=== PATIENT | female | born 1965 | race Caucasian/White ===

== ENCOUNTER 2017-04-11 05:46 | Emergency (ER) | payer OTHER ==
[2017-04-11 08:34] LABS: APPEARANCE,URINE SLIGHTLY-CLOUDY; BILIRUBIN,URINE NEGATIVE (NEGATIVE); GLUCOSE, URINE 50 mg/dL (NEGATIVE); KETONES,URINE NEGATIVE (NEGATIVE); LEUKOCYTE ESTERASE,URINE NEGATIVE (NEGATIVE); NITRITE,URINE NEGATIVE (NEGATIVE); PROTEIN,URINE NEGATIVE (NEGATIVE); URINE SPECIFIC GRAVITY 1.014; UROBILINOGEN,URINE NEGATIVE mg/dL (<2.0)
[2017-04-11 08:51] LABS: ABSOLUTE BASOPHILS # (AUTO) 0.1 10^3/uL (0.0-0.2); ABSOLUTE EOSINOPHILS # (AUTO) 0.3 10^3/uL (0.0-0.6); ABSOLUTE LYMPHOCYTES (AUTO) 2.4 10^3/uL (0.5-4.7); ABSOLUTE MONOCYTES (AUTO) 0.4 10^3/uL (0.1-1.4); ABSOLUTE NEUT (AUTO) 5.8 10^3/uL (1.7-8.2); BASOPHILS % (AUTO) 0.9 % (0-2); EOSINOPHILS % (AUTO) 3.1 % (0-6); HEMATOCRIT 40.3 % (36.0-47.0); HGB HCT DIFFERENCE -1.3; LYMPHOCYTES % (AUTO) 26.6 % (13-45); MEAN CORPUSCULAR HEMOGLOBIN 25.1 pg (27.0-33.4); MEAN CORPUSCULAR HGB CONC 32.4 g/dL (32.0-36.0); MEAN CORPUSCULAR VOLUME 77 fl (80-97); MONOCYTES % (AUTO) 4.1 % (3-13); RED CELL DISTRIBUTION WIDTH 16.3 % (11.5-14.0); SEGMENTED NEUTROPHILS % (AUTO) 65.3 % (42-78); WHITE BLOOD COUNT 8.9 10^3/uL (4.0-10.5)
[2017-04-11 09:07] LABS: ALANINE AMINOTRANSFERASE 41 U/L (9-52); ALBUMIN 4.2 g/dL (3.5-5.0); ALKALINE PHOSPHATASE 106 U/L (38-126); ANION GAP 9 (5-19); ASPARTATE AMINO TRANSFERASE 62 U/L (14-36); BILIRUBIN,DIRECT 0.6 mg/dL (0.0-0.4); BLOOD UREA NITROGEN 10 mg/dL (7-20); CALCIUM 9.4 mg/dL (8.4-10.2); CARBON DIOXIDE 32 mmol/L (22-30); CHLORIDE 98 mmol/L (98-107); GLUCOSE 224 mg/dL (75-110); POTASSIUM 4.5 mmol/L (3.6-5.0); TOTAL PROTEIN 8.2 g/dL (6.3-8.2)
--- NOTE | 2017-04-11 10:28 | RADIOLOGY REPORT (SQ) ---
EXAM DESCRIPTION: CT ABD/PELVIS WITH IV ONLY COMPLETED DATE/TIME: 04/11/2017 10:00 am REASON FOR STUDY: LUQ pain COMPARISON: None. TECHNIQUE: CT scan of the abdomen and pelvis performed using helical scanning technique with dynamic intravenous contrast injection. No oral contrast. Images reviewed with lung, soft tissue, and bone windows. Reconstructed coronal and sagittal MPR images reviewed. Delayed images for evaluation of the urinary system also acquired. All images stored on PACS. All CT scanners at this facility use dose modulation, iterative reconstruction, and/or weight based d osing when appropriate to reduce radiation dose to as low as reasonably achievable (ALARA). [facility]: Dose Right [facility]: CareDose [facility]: Dose Right [facility]: Teradose 4D [facility]: [employer] CONTRAST TYPE AND DOSE: 100mL Isovue 370- low osmolar. RENAL FUNCTION: Creatinine 0.7 BUN 10 RADIATION DOSE: 42.28mGy. LIMITATIONS: None. FINDINGS: LOWER CHEST: Cardiomegaly. Low lung volumes. LIVER: Hepatomegaly. Decreased density. No masses. SPLEEN: Splenomegaly. The spleen measures 15.4 cm. PANCREAS: No masses. No significant calcifications. No adjacent inflammation or peripancreatic fluid collections. Pancreatic duct not dilated. GALLBLADDER: Surgically absent. ADRENAL GLANDS: No significant masses or asymmetry. RIGHT KIDNEY AND URETER: No solid masses. No significant calcifications. No hydronephrosis or hyd roureter. LEFT KIDNEY AND URETER: No solid masses. No significant calcifications. No hydronephrosis or hydr oureter. AORTA AND VESSELS: No aneurysm. No dissection. Renal arteries, SMA, celiac without stenosis. RETROPERITONEUM: No retroperitoneal adenopathy, hemorrhage or masses. BOWEL AND PERITONEAL CAVITY: No masses or inflammatory changes. No free fluid or peritoneal masses. Sigmoid diverticula with no acute inflammatory changes. APPENDIX: Normal. PELVIS: The urinary bladder is normal. The uterus is normal for age. There is no adnexal mass or fl uid collection. There is no free fluid. ABDOMINAL WALL: No masses. No hernias. BONES: Bridging osteophytes are present thoracic and upper lumbar spine. There is grade 1 anterolist hesis of L4 on L5. The L4-5 and L5-S1 disc spaces are narrowed. OTHER: No other significant finding. IMPRESSION: 1. Hepatosplenomegaly with fatty infiltration of the liver. 2. Diverticulosis coli. 3. Thoracolumbar spondylosis with lumbar degenerative disc changes and grade 1 anterolisthesis of L4 on L5. TECHNICAL DOCUMENTATION: JOB ID: [id number] Quality ID # [id number]: Final reports with documentation of one or more dose reduction techniques (e.g., Au tomated exposure control, adjustment of the mA and/or kV according to patient size, use of iterative reconstruction technique) 2010 [employer]- All Rights Reserved
--- NOTE | 2017-04-11 11:03 | ER Document Report ---
ED General - General Chief Complaint: Abdominal Pain Stated Complaint: ABDOMINAL PAIN Time Seen by Provider: 04/11/17 06:14 Mode of Arrival: Wheelchair Information source: Patient Notes: 51-year-old female presents with complaints of intermittent abdominal pain. Patient notes a tender nodule in the left upper abdomen. Denies any fevers or chills. Patient does note bright red blood clots per rectum TRAVEL OUTSIDE OF THE [place] IN LAST 30 DAYS: No - HPI Onset: Just prior to arrival Onset/Duration: Sudden Quality of pain: Cramping Severity: Mild Pain Level: 1 Associated symptoms: None Exacerbated by: Denies Relieved by: Denies Similar symptoms previously: No Recently seen / treated by doctor: No - Related Data Allergies/Adverse Reactions: zithromax Allergy (Severe, Uncoded 02/08/14 22:43) Past Medical History - Social History Smoking Status: Never Smoker Cigarette use (# per day): No Chew tobacco use (# tins/day): No Smoking Education Provided: No Family History: Reviewed & Not Pertinent Patient has suicidal ideation: No Patient has homicidal ideation: No - Past Medical History Cardiac Medical History: Reports: Hx Hypertension Denies: Hx Coronary Artery Disease, Hx Heart Attack Pulmonary Medical History: Reports: Hx Asthma Denies: Hx Bronchitis, Hx COPD, Hx Pneumonia Neurological Medical History: Denies: Hx Cerebrovascular Accident, Hx Seizures Renal/ Medical History: Denies: Hx Peritoneal Dialysis Musculoskeltal Medical History: Reports Hx Arthritis Past Surgical History: Reports: Hx Section - x2, Hx Cholecystectomy, Hx Tonsillectomy, Hx Tubal Ligation. Denies: Hx Pacemaker - Immunizations Hx Diphtheria, Pertussis, Tetanus Vaccination: No Review of Systems - Review of Systems Notes: PHYSICAL EXAMINATION: GENERAL: Well-appearing, well-nourished and in no acute distress. HEAD: Atraumatic, normocephalic. EYES: Pupils equal round and reactive to light, extraocular movements intact, conjunctiva are normal. ENT: Nares patent, oropharynx clear without exudates. Moist mucous membranes. NECK: Normal range of motion, supple without lymphadenopathy LUNGS: Breath sounds clear to auscultation bilaterally and equal. No wheezes rales or rhonchi. HEART: Regular rate and rhythm without murmurs ABDOMEN: Soft, tender nodule left upper abdomen Female : deferred Musculoskeletal: Normal range of motion, no pitting or edema. No cyanosis. NEUROLOGICAL: Cranial nerves grossly intact. Normal speech, normal gait. Normal sensory, motor exams PSYCH: Normal mood, normal affect. SKIN: Warm, Dry, normal turgor, no rashes or lesions noted. Physical Exam - Vital signs Vitals: Temp Pulse Resp BP Pulse Ox 97.8 F 88 20 156/82 H 97 04/11/17 05:47 04/11/17 05:47 04/11/17 05:47 04/11/17 05:47 04/11/17 05:47 Course - Re-evaluation Re-evalutation: 04/11/17 11:03 CT was consistent with diverticulosis, patient does have a history of gastric reflux as well. I believe these may be the causes of blood per rectum however would not be the cause of the tender nodule on her abdomen, ultrasound is pending 04/11/17 13:11 Ultrasound is consistent with a 2 x 2.5 x 2 cm palpable abnormality, consideration for lipoma versus hematoma versus abscess. Patient does not wish to have this area explored at this time. Will have follow-up with primary care physician. She will be treated for her gastric reflux and diverticulosis After performing a Medical Screening Examination, I estimate there is LOW risk for ACUTE APPENDICITIS, BOWEL OBSTRUCTION, ACUTE CHOLECYSTITIS, PERFORATED DIVERTICULITIS, INCARCERATED HERNIA, PANCREATITIS, PELVIC INFLAMMATORY DISEASE, PERFORATED ULCER, ECTOPIC , or TUBO-OVARIAN ABSCESS, thus I consider the discharge disposition reasonable. Also, there is no evidence or peritonitis , sepsis, or toxicity. I have reevaluated this patient multiple times and no significant life threatening changes are noted. The patient and I have discussed the diagnosis and risks, and we agree with discharging home with close follow-up with the understanding that symptoms and presentations can change. We also discussed returning to the Emergency Department immediately if new or worsening symptoms occur. We have discussed the symptoms which are most concerning (e.g., bloody stool, fever, changing or worsening pain, vomiting) that necessitate immediate return. - Vital Signs Vital signs: Temp Pulse Resp BP Pulse Ox 97.8 F 88 20 156/82 H 97 04/11/17 05:47 04/11/17 05:47 04/11/17 05:47 04/11/17 05:47 04/11/17 05:47 - Laboratory Result Diagrams: 04/11/17 08:35 04/11/17 08:35 Laboratory results interpreted by me: 04/11/17 04/11/17 04/11/17 08:10 08:35 08:35 MCV 77 L MCH 25.1 L RDW 16.3 H Carbon Dioxide 32 H Glucose 224 H Direct Bilirubin 0.6 H AST 62 H Urine Glucose (UA) 50 H Urine Blood SMALL H - Diagnostic Test Radiology reviewed: Image reviewed, Reports reviewed - Diverticulosis Discharge - Discharge Clinical Impression: Hypertension Qualifiers: Hypertension type: essential hypertension Qualified Code(s): I10 - Essential ( primary) hypertension Diverticulosis Qualifiers: Diverticulosis site: diverticulosis of large intestine Diverticulosis bleeding : diverticulosis without bleeding Qualified Code(s): K57.30 - Diverticulosis of large intestine without perforation or abscess without bleeding Abdominal pain Qualifiers: Abdominal location: generalized Qualified Code(s): R10.84 - Generalized abdominal pain Lipoma Qualifiers: Lipoma location: trunk Qualified Code(s): D17.1 - Benign lipomatous neoplasm of skin and subcutaneous tissue of trunk Condition: Stable Disposition: HOME, SELF-CARE Instructions: Abdominal Pain ([facility]) Prescriptions: Famotidine [Pepcid 20 mg Tablet] 20 mg PO DAILY #30 tablet Omeprazole 20 mg PO DAILY #30 tablet.dr Referrals: GEE JIMENEZ CNM [Primary Care Provider] - Follow up as needed LINA LAO MD [ACTIVE STAFF] - Follow up tomorrow
--- NOTE | 2017-04-11 12:52 | RADIOLOGY REPORT (SQ) ---
EXAM DESCRIPTION: U/S ABDOMEN LIMITED W/O DOP COMPLETED DATE/TIME: 04/11/2017 12:25 pm REASON FOR STUDY: left upper abd mass? COMPARISON: None. TECHNIQUE: Dynamic and static grayscale images acquired of the localized site of clinical concern an d recorded on PACS. Additional selected color Doppler and spectral images recorded. SITE OF CONCERN: Left upper abdomen LIMITATIONS: None. FINDINGS: SKIN AND SUBCUTANEOUS TISSUES: An ill-defined area of increased echogenicity is identified at the level of the palpable abnormality measuring 2.4 x 2.6 x 1.7 cm in diameters. Differential po ssibilities would include a lipoma or hematoma. This could also be related to an infectious process. No associated fluid collections are identified. Other etiologies cannot be completely excluded. C linical correlation is recommended. DEEP SOFT TISSUES/MUSCLES: No masses. No fluid collections. No edema. VASCULAR: No increased or decreased vascularity. No occlusions. OTHER: No other significant finding. IMPRESSION: Ill-defined area of increased echogenicity is identified at the level of the palpable ab normality is noted above with differential possibilities as noted above. Clinical correlation is rec ommended TECHNICAL DOCUMENTATION: JOB ID: [id number] [employer]- All Rights Reserved
[2017-04-11 13:29] VITALS: BP 149/77
== END 2017-04-11 13:29 | disposition home or self-care (01) ==
LOC: ER 05:46
DX: D17.1 Benign lipomatous neoplasm of skin and subcutaneous tissue of trunk (principal); K21.9 Gastro-esophageal reflux disease without esophagitis; K57.30 Diverticulosis of large intestine without perforation or abscess without bleeding; K62.5 Hemorrhage of anus and rectum; R10.84 Generalized abdominal pain; I10 Essential (primary) hypertension; Z87.19 Personal history of other diseases of the digestive system; Z88.1 Allergy status to other antibiotic agents
CPT/HCPCS: 36415; 74177; 76705; 80053; 81001; 81025; 83690; 85025; 99284

== ENCOUNTER 2017-06-27 14:59 | Day surgery (SDC) | payer OTHER ==
[2017-06-27] MEDS ORDERED: FENTANYL CITRATE INJ/PF 100 MCG/2 ML AMPUL ONE (15:23)
[2017-06-27] MEDS ORDERED: NALOXONE HCL INJ/PF 0.4 MG/1 ML SDV ONE (15:23)
[2017-06-27] MEDS ORDERED: GLUCAGON,HUMAN RECOMB 1 MG INJ ONE (15:24)
[2017-06-27] MEDS ORDERED: EPINEPHRINE INJ 1 MG/10 ML DISP.SYRIN ONE (15:24)
[2017-06-27] MEDS ORDERED: FLUMAZENIL INJ 0.5 MG/5 ML VIAL IV ONE (15:24)
[2017-06-27] MEDS: MIDAZOLAM 2 MG/2 ML INJ ONE ×2 (17:40→17:45)
--- NOTE | 2017-06-27 18:10 | Operative Report ---
Operative Report DATE OF SURGERY: 06/27/17 Operative Report: Pre-op diagnosis: Colon cancer screening and history of diverticulitis Post-op diagnosis: Pancolonic diverticulosis. Internal hemorrhoids Surgery: Colonoscopy Medications: Versed 4mg, Fentanyl 100mcg IV push Tissue removed: Procedure: After informed consent obtained from patient, conscious sedation was achieved. A digital rectal examination was performed and this was unremarkable. The colonoscope was inserted into the rectum and advanced to the cecum. The appendiceal orifice and the terminal ileum were both identified. The mucosa was examined into details as the colonoscope was slowly pulled out of the patient. The endoscope was retroflexed in the rectum. Patient tolerated the procedure well. Findings Cecum: Normal Ascending colon: A few diverticuli Transverse colon: Normal Descending colon: A few diverticuli Sigmoid colon: Multiple diverticuli Rectum: Normal except for internal hemorrhoids Plan: Fiber supplements every day. Follow-up colonoscopy in 10 years OPERATION: .
--- NOTE | 2017-06-27 18:13 | PDOC DISCHARGE SUMMARY ---
Discharge Summary (SDC) - Discharge Final Diagnosis: Pancolonic diverticulosis Date of Surgery: 06/27/17 Condition: Stable Treatment or Instructions: Fiber supplements twice a day Discharge Diet: As Tolerated Discharge Activity: Activity As Tolerated Report the Following to Your Physician Immediately: Shortness of Breath, Nausea , Vomiting, Swelling, Warmth, Increased Soreness
[2017-06-27] MEDS ORDERED: LIDOCAINE 0.5% INJ-PF (5 MG/ML) 50 ML SDV ONE (18:51)
[2017-06-27 18:52] VITALS: BP 136/66
== END 2017-06-27 18:50 | disposition home or self-care (01) ==
LOC: END 14:59
PROVIDERS: ATTEND Internal Medicine Gastroenterology
PROC: 0DJD8ZZ Inspection of Lower Intestinal Tract, Via Natural or Artificial Opening Endoscopic (ICD-10-PCS; principal; 2017-06-27 15:45)
DX: K57.32 Diverticulitis of large intestine without perforation or abscess without bleeding (principal); K64.8 Other hemorrhoids; E11.9 Type 2 diabetes mellitus without complications; K76.0 Fatty (change of) liver, not elsewhere classified; R16.2 Hepatomegaly with splenomegaly, not elsewhere classified; Z79.84 Long term (current) use of oral hypoglycemic drugs; Z79.899 Other long term (current) drug therapy; Z88.1 Allergy status to other antibiotic agents
CPT/HCPCS: 45378; 82962; J2250; J3010; J3490; J0171; J1610; J2310

== ENCOUNTER 2019-12-14 20:11 | Emergency (ER) | payer OTHER ==
--- NOTE | 2019-12-14 21:53 | ER Document Report ---
ED Medical Screen (RME) - General Chief Complaint: Fever Stated Complaint: FEVER Time Seen by Provider: 12/14/19 21:46 Primary Care Provider: GLENDY AMAYA [Primary Care Provider] - Follow up as needed Mode of Arrival: Ambulatory Information source: Patient, Relative Notes: 54-year-old female presents emergency department with complaints of runny nose fever body aches. Patient had excess skin removed and lipo from her hips and her legs in [place] approximately 1 week ago. She reports everybody was ill on the plane. She did not receive her influenza vaccine this year. Denies vomiting diarrhea. Reports she will take Tylenol temperature will come down but then will pop right back up. Patient's highest temp was 102. Last Tylenol taken at 630 tonight. [employer] TRAVEL OUTSIDE OF THE [place] IN LAST 30 DAYS: No - Related Data Allergies/Adverse Reactions: zithromax Allergy (Severe, Uncoded 06/26/17 14:19) Anaphylaxis preservatives in Frozen foods Allergy (Uncoded 06/27/17 15:20) Hives Processed honey products Allergy (Uncoded 06/27/17 15:20) Hives Yogurts with fruit Allergy (Uncoded 06/27/17 15:20) Hives Past Medical History - Social History Chew tobacco use (# tins/day): No Frequency of alcohol use: None Drug Abuse: None - Past Medical History Cardiac Medical History: Reports: Hx Hypertension Denies: Hx Coronary Artery Disease, Hx Heart Attack Pulmonary Medical History: Reports: Hx Asthma Denies: Hx Bronchitis, Hx COPD, Hx Pneumonia Neurological Medical History: Denies: Hx Cerebrovascular Accident, Hx Seizures Renal/ Medical History: Denies: Hx Peritoneal Dialysis Musculoskeltal Medical History: Reports Hx Arthritis Past Surgical History: Reports: Hx Section - x2, Hx Cholecystectomy, Hx Tonsillectomy, Hx Tubal Ligation. Denies: Hx Hysterectomy, Hx Pacemaker - Immunizations Hx Diphtheria, Pertussis, Tetanus Vaccination: No Physical Exam - Vital signs Vitals: Temp Pulse Resp BP Pulse Ox 99.6 F 115 H 20 130/69 H 98 12/14/19 20:24 12/14/19 20:24 12/14/19 20:24 12/14/19 20:24 12/14/19 20:24 Course - Vital Signs Vital signs: Temp Pulse Resp BP Pulse Ox 99.6 F 115 H 20 130/69 H 98 12/14/19 20:24 12/14/19 20:24 12/14/19 20:24 12/14/19 20:24 12/14/19 20:24 Doctor's Discharge - Discharge Referrals: GLENDY AMAYA [Primary Care Provider] - Follow up as needed
[2019-12-14 22:36] LABS: ABSOLUTE EOSINOPHILS # (AUTO) 0.1 10^3/uL (0.0-0.6); ABSOLUTE LYMPHOCYTES (AUTO) 0.8 10^3/uL (0.5-4.7); ABSOLUTE MONOCYTES (AUTO) 0.5 10^3/uL (0.1-1.4); BASOPHILS % (AUTO) 0.7 % (0-2); EOSINOPHILS % (AUTO) 1.9 % (0-6); HEMATOCRIT 39.5 % (36.0-47.0); HEMOGLOBIN 13.6 g/dL (12.0-15.5); LYMPHOCYTES % (AUTO) 14.2 % (13-45); MEAN CORPUSCULAR HEMOGLOBIN 27.8 pg (27.0-33.4); MEAN CORPUSCULAR HGB CONC 34.3 g/dL (32.0-36.0); MEAN CORPUSCULAR VOLUME 81 fl (80-97); MONOCYTES % (AUTO) 9.2 % (3-13); PLATELET COUNT 190 10^3/uL (150-450); RED BLOOD COUNT 4.88 10^6/uL (3.72-5.28); RED CELL DISTRIBUTION WIDTH 13.9 % (11.5-14.0); TOTAL CELLS COUNTED % (AUTO) 100 %; WHITE BLOOD COUNT 5.4 10^3/uL (4.0-10.5)
[2019-12-14 22:57] LABS: A TYPE INFLUENZA AG POSITIVE (NEGATIVE); ALBUMIN 3.7 g/dL (3.5-5.0); ALKALINE PHOSPHATASE 116 U/L (38-126); ANION GAP 9 (5-19); ASPARTATE AMINO TRANSFERASE 86 U/L (14-36); B INFLUENZA AG NEGATIVE (NEGATIVE); BILIRUBIN,DIRECT 0.2 mg/dL (0.0-0.4); BILIRUBIN,TOTAL 0.6 mg/dL (0.2-1.3); BLOOD UREA NITROGEN 22 mg/dL (7-20); CALCIUM 8.8 mg/dL (8.4-10.2); CARBON DIOXIDE 31 mmol/L (22-30); CHLORIDE 99 mmol/L (98-107); GLUCOSE 93 mg/dL (75-110); POTASSIUM 4.3 mmol/L (3.6-5.0)
[2019-12-14 23:03] LABS: APPEARANCE,URINE SLIGHTLY-CLOUDY; BILIRUBIN,URINE NEGATIVE (NEGATIVE); COLOR,URINE YELLOW; GLUCOSE, URINE NEGATIVE (NEGATIVE); KETONES,URINE NEGATIVE (NEGATIVE); LEUKOCYTE ESTERASE,URINE LARGE (NEGATIVE); NITRITE,URINE NEGATIVE (NEGATIVE); PROTEIN,URINE NEGATIVE (NEGATIVE); URINE SPECIFIC GRAVITY 1.024; UROBILINOGEN,URINE NEGATIVE mg/dL (<2.0)
[2019-12-15] MEDS ORDERED: ACETAMINOPHEN 325 MG TABLET PO ONE (00:16)
[2019-12-15] MEDS ORDERED: NORMAL SALINE 1000 ML 1,000 ML IV ONE (00:41)
[2019-12-15] MEDS ORDERED: KETOROLAC TROMETHAMINE INJ/PF 30 MG/1 ML SDV IV ONE (00:42)
[2019-12-15] MEDS ORDERED: ONDANSETRON ODT 4 MG TAB (6 TAB/ER DISP) PO PRN (00:48)
--- NOTE | 2019-12-15 00:48 | ER Document Report ---
ED Fever - General Chief Complaint: Fever Stated Complaint: FEVER Time Seen by Provider: 12/14/19 21:46 Primary Care Provider: GLENDY AMAYA [Primary Care Provider] - Follow up as needed Mode of Arrival: Ambulatory TRAVEL OUTSIDE OF THE [place] IN LAST 30 DAYS: No - HPI Notes: Patient is a 54-year-old female who presents to the emergency department for evaluation. On Monday afternoon she developed a productive cough. Later that night she developed a fever. She has had some nausea and diminished appetite but no emesis. Normal urination. Normal bowel movements. She has a headache on the top of her head, worsened by coughing. She did not get her influenza vaccination this year. The patient recently traveled back from [place], where she had skin reduction and liposuction performed. She states that "everyone was sick on the plane." She has had [place] drains in place since surgery. She states she was told that she could pull them, but she has not because of the fevers. The wounds have been evaluated closely today in the shower, they appear to be healing well, no signs of infection per patient and . - Related Data Allergies/Adverse Reactions: zithromax Allergy (Severe, Uncoded 06/26/17 14:19) Anaphylaxis preservatives in Frozen foods Allergy (Uncoded 06/27/17 15:20) Hives Processed honey products Allergy (Uncoded 06/27/17 15:20) Hives Yogurts with fruit Allergy (Uncoded 06/27/17 15:20) Hives Past Medical History - General Information source: Patient, Relative - Social History Smoking Status: Never Smoker Chew tobacco use (# tins/day): No Frequency of alcohol use: None Drug Abuse: None Family History: Reviewed & Not Pertinent Patient has suicidal ideation: No Patient has homicidal ideation: No - Past Medical History Cardiac Medical History: Reports: Hx Hypertension Denies: Hx Coronary Artery Disease, Hx Heart Attack Pulmonary Medical History: Reports: Hx Asthma Denies: Hx Bronchitis, Hx COPD, Hx Pneumonia Neurological Medical History: Denies: Hx Cerebrovascular Accident, Hx Seizures Renal/ Medical History: Denies: Hx Peritoneal Dialysis Musculoskeletal Medical History: Reports Hx Arthritis Past Surgical History: Reports: Hx Section - x2, Hx Cholecystectomy, Hx Gastric Bypass Surgery, Hx Tonsillectomy, Hx Tubal Ligation, Other - Liposuction, skin reduction. Denies: Hx Hysterectomy, Hx Pacemaker - Immunizations Hx Diphtheria, Pertussis, Tetanus Vaccination: No Review of Systems - Review of Systems Constitutional: See HPI EENT: No symptoms reported Cardiovascular: No symptoms reported Respiratory: See HPI Gastrointestinal: See HPI Genitourinary: No symptoms reported Musculoskeletal: No symptoms reported Skin: No symptoms reported Neurological/Psychological: No symptoms reported Physical Exam - Vital signs Vitals: Temp Pulse Resp BP Pulse Ox 99.6 F 115 H 20 130/69 H 98 12/14/19 20:24 12/14/19 20:24 12/14/19 20:24 12/14/19 20:24 12/14/19 20:24 - Notes Notes: Vital signs reviewed, please refer to chart. Head is normocephalic, atraumatic. Pupils equal round, reactive to light. Oral mucosa is moist. Pharynx is without erythema or exudate. Neck is supple without meningismus. Heart is regular rate and rhythm. Lungs are clear to auscultation bilaterally. Abdomen is soft, nontender, normoactive bowel sounds throughout. Extremities without cyanosis, clubbing. Posterior calves are nontender. Peripheral pulses are equal. Skin is warm and dry. She has bandages on her upper thighs with NICKO drains in place. There is approximately 10 cc of serosanguineous appearing fluid in each drain. Patient is awake, alert, oriented x3. Cranial nerves II - XII are grossly intact without focal neurological deficits. Strength is plus 5 out of 5 bilateral upper and lower extremities. Sensation is intact. Reflexes symmetrical. Intact [id number], rapid alternating movements, [id number]. Course - Re-evaluation Re-evalutation: 12/15/19 00:44 Patient presents to the emergency department for evaluation. Laboratory investigations were obtained. Patient is found to be flu a positive. She does not have a significant leukocytosis. She is given IV fluids. 50 mg of Toradol was ordered. Patient was not sure as to whether or not she wanted to take this, given her surgical drains, but her output has been diminished, and she was told she could pull the drains, but she has not yet done that. We did discuss at length the possibility of the use of Tamiflu. The decision was made to write the prescription, they can fill it after discussion with primary care as well as pharmacy. Otherwise, patient is stable. She is oxygenating well. We will send her home with Zofran as well, close follow-up. She is to return to the ED with worsening. - Vital Signs Vital signs: Temp Pulse Resp BP Pulse Ox 102.4 F H 115 H 20 130/69 H 98 12/15/19 00:27 12/14/19 20:24 12/14/19 20:24 12/14/19 20:24 12/14/19 20:24 - Laboratory Result Diagrams: 12/14/19 22:25 12/14/19 22:25 Laboratory results interpreted by me: 12/14/19 12/14/19 22:25 22:30 Carbon Dioxide 31 H BUN 22 H AST 86 H Ur Leukocyte Esterase LARGE H Urine Ascorbic Acid 40 H Discharge - Discharge Clinical Impression: Influenza A Condition: Stable Disposition: HOME, SELF-CARE Instructions: Influenza ([facility]) [id number], Fever ([facility]) Additional Instructions: Rest, stay well-hydrated. Zofran as needed for nausea. Tylenol as needed for fever/pain. Follow-up with your primary care provider. You can start Tamiflu tomorrow morning as discussed. Return to the emergency department with worsening or new concerning symptoms of any sort. Referrals: GLENDY AMAYA [Primary Care Provider] - Follow up as needed
[2019-12-15 01:14] VITALS: BP 116/68
== END 2019-12-15 01:13 | disposition home or self-care (01) ==
LOC: ER 20:11
DX: J11.1 Influenza due to unidentified influenza virus with other respiratory manifestations (principal); R50.9 Fever, unspecified; R11.0 Nausea; I10 Essential (primary) hypertension; Z90.49 Acquired absence of other specified parts of digestive tract; Z98.84 Bariatric surgery status; Z98.51 Tubal ligation status
CPT/HCPCS: 36415; 80053; 81001; 83605; 85025; 87804; 99283